=== PATIENT | male | born 1995 | race African-American/Black ===

== ENCOUNTER 2023-10-28 22:55 | Emergency (ER) | payer SELFPAY ==
[2023-10-28] MEDS ORDERED: ONDANSETRON 4 MG/2 ML VIAL ONE (23:07)
[2023-10-28] MEDS ORDERED: MORPHINE 4 MG/ML SYR ONE (23:07)
[2023-10-28] MEDS ORDERED: NA CHLORIDE 0.9% 1,000 ML ONE (23:08)
[2023-10-28 23:20] LABS: Absolute Basophils 0.1 K/uL (0-0.5); Absolute Eosinophils 0.3 K/uL (0-0.5); Absolute Lymphocytes (CBC) 4.4 K/uL (0.7-4.9); Absolute Monocytes 0.9 K/uL (0.1-1.3); Absolute Neutrophil 10.4 K/uL (1.8-8.0); Basophils % 0.4 % (0-1.3); Eosinophils % 1.6 % (0-4.4); Hematocrit 39.4 % (39.6-49.0); Hemoglobin 13.2 g/dL (13.6-17.9); Lymphocytes % 27.6 % (15.3-44.8); MCH 31.6 pg (27.0-35.0); MCHC 33.4 g/dL (32.0-36.0); MCV 94.6 fL (80-100); MPV 7.9 fL (7.6-11.3); Monocytes % 5.7 % (3.3-12.3); Neutrophils % 64.7 % (41.7-73.7); Nucleated Red Blood Cells % 0.1 % (0-0); Platelets 300 thou/uL (152-406); RBC Red Blood Cell Count 4.16 M/uL (4.33-5.43); Red Cell Distribution Width 13.8 % (12.1-15.2)
[2023-10-28 23:26] LABS: Albumin 3.8 g/dL (3.4-5.0); Albumin/Globulin Ratio 1.1 (1.1-1.8); Anion Gap 12.1 mEq/L (5.0-15.0); Bilirubin Total 0.7 mg/dL (0.2-1.0); Globulin 3.5 g/dL (2.3-3.5); Potassium 3.1 mEq/L (3.5-5.1); Protein, Total 7.3 g/dL (6.4-8.2)
[2023-10-29] MEDS ORDERED: PIPERACIL/TAZO 3.375 GM VIAL IV ONE (00:24)
[2023-10-29] MEDS ORDERED: NA CHLORIDE 0.9% 100 ML ONE (00:24)
[2023-10-29 00:50] LABS: Calcium Oxalate Crystals- Ur Few /HPF (None Seen); Sqamous Epithelial <5 /HPF (None Seen); Urine Bacteria <20 /HPF (<20); Urine Bilirubin NEGATIVE (Negative); Urine Blood Negative (Negative); Urine Clarity Clear (Clear); Urine Color Light-Yellow (Yellow); Urine Culture Reflex Order NOT NEEDED; Urine Glucose NEGATIVE (Negative); Urine Ketones NEGATIVE (Negative); Urine Microscopic Reflex YN ORDER UMIC; Urine Mucus Slight /HPF (None Seen); Urine Nitrite NEGATIVE (Negative); Urine Protein TRACE (Negative); Urine RBC None Seen /HPF (None Seen); Urine Urobilinogen Normal (Normal); Urine pH 6.5 (5.0-7.0)
[2023-10-29 00:51] LABS: Specific Gravity > 1.030 (1.005-1.030)
--- NOTE | 2023-10-29 02:30 | EDPHYS ---
Physician Documentation [facility] Name: Luis Smalls Age: 27 yrs Sex: Male : 1995 Arrival Date: 10/28/2023 Time: 22:55 Bed 19 Private MD: ED Physician Jacob Lopez HPI: 10/27 23:23 This 27 yrs old Black Male presents to ER via Unassigned with complaints of Abdominal rt Pain. 23:23 Patient presents to the ED with a generalized abdominal pain, intermittently for about rt 1 week. It worsened tonight. Reports nausea, vomiting. Denies other acute complaints at this time, symptoms are moderate in severity, no other aggravating or alleviating factors.. Historical: - Allergies: 23:52 No Known Allergies; pc2 - PMHx: 23:52 None; pc2 - PSHx: 23:52 None; pc2 - Immunization history:: Adult Immunizations unknown. - Infectious Disease History:: Denies. - Family history:: not pertinent. - Social history:: Smoking status: Patient reports the use of cigarette tobacco products, denies chronic smoking, but will smoke occasionally. ROS: 23:23 Constitutional: Negative for fever, chills, and weight loss, Cardiovascular: Negative rt for chest pain, palpitations, and edema, Respiratory: Negative for shortness of breath, cough, wheezing, and pleuritic chest pain, MS/Extremity: Negative for injury and deformity, Skin: Negative for injury, rash, and discoloration, Neuro: Negative for headache, weakness, numbness, tingling, and seizure, 23:23 Abdomen/GI: Positive for abdominal pain, nausea and vomiting, Exam: 23:23 Constitutional: This is a well developed, well nourished patient who is awake, alert, rt and in no acute distress. Head/Face: Normocephalic, atraumatic. Chest/axilla: Normal chest wall appearance and motion. Nontender with no deformity. No lesions are appreciated. Cardiovascular: Regular rate and rhythm with a normal S1 and S2. No gallops, murmurs, or rubs. Normal PMI, no JVD. No pulse deficits. Respiratory: Lungs have equal breath sounds bilaterally, clear to auscultation and percussion. No rales, rhonchi or wheezes noted. No increased work of breathing, no retractions or nasal flaring. Skin: Warm, dry with normal turgor. Normal color with no rashes, no lesions, and no evidence of cellulitis. MS/ Extremity: Pulses equal, no cyanosis. Neurovascular intact. Full, normal range of motion. Neuro: Awake and alert, GCS 15, oriented to person, place, time, and situation. Cranial nerves II-XII grossly intact. Motor strength 5/5 in all extremities. Sensory grossly intact. Cerebellar exam normal. Normal gait. 23:23 Abdomen/GI: Tenderness diffusely with no rebound, mild guarding, distention, Vital Signs: 22:50 BP 135 / 100; Pulse 61; Resp 18; Temp 98.2; Pulse Ox 99% on R/A; pc2 23:48 BP 128 / 92; Pulse 73; Resp 18; Pulse Ox 99% on R/A; Weight 63.05 kg; Height 5 ft. 8 pc2 in. ; 10/28 03:00 BP 146 / 79; Pulse 74; Resp 16; Pulse Ox 100% on R/A; pc2 10/27 23:48 Body Mass Index 21.13 (63.05 kg, 172.72 cm) pc2 MDM: 10/27 22:57 Patient medically screened. rt 10/28 04:44 Differential Diagnosis Cholecystitis, UTI, colitis, bowel obstruction. Data reviewed: rt vital signs, nurses notes, lab test result(s), radiologic studies. Consideration of Admission/Observation Escalation of care including admission/observation considered. Patient with leukocytosis, has no other SIRS criteria. I discussed findings with the patient, patient states that he wishes to go home. Will treat patient with course of antibiotics. I did offer patient mission to the hospital, he states that he wishes to follow-up as an outpatient. Strict return precautions were discussed.. I considered the following discharge prescriptions or medication management in the emergency department Medications were administered in the Emergency Department. See MAR. Independent interpretation of the following test(s) in the Emergency Department CT Scan: My interpretation is No bowel obstruction seen on my interpretation of CT scan images. Counseling: I had a detailed discussion with the patient and/or guardian regarding the historical points, exam findings, and any diagnostic results supporting the discharge/admit diagnosis, lab results, radiology results, the need for outpatient follow up, to return to the emergency department if symptoms worsen or persist or if there are any questions or concerns that arise at home. Response to treatment: the patient's symptoms have markedly improved after treatment. 10/27 22:57 Order name: CBC with Diff; Complete Time: 00:05 rt 10/27 22:57 Order name: CMP; Complete Time: 00:05 rt 10/27 22:57 Order name: Lipase; Complete Time: 00:05 rt 10/27 22:57 Order name: Urinalysis w/ reflexes; Complete Time: 00:55 rt 10/27 22:57 Order name: CT Abd/Pelvis - IV Contrast Only rt 10/28 00:14 Order name: US Abdomen Limited rt 10/27 22:57 Order name: IV Saline Lock; Complete Time: 23:03 rt 10/27 21:57 Order name: Labs collected and sent; Complete Time: 23:03 rt Administered Medications: 10/27 23:30 Drug: NS 0.9% IV 1000 ml IV at 1 bolus Per protocol; 1000 mL bolus Route: IV; Rate: 1 pc2 bolus; Site: right antecubital; 10/28 00:00 Follow up: Response: No adverse reaction; IV Status: Completed infusion; IV Intake: pc2 1000ml 10/27 23:30 Drug: Ondansetron IVP 4 mg IVP once; over 2 minutes Route: IVP; Site: right antecubital;pc2 10/28 00:00 Follow up: Response: No adverse reaction pc2 10/27 23:30 Drug: morphine IVP or IV 4 mg IVP once over 4 mins Route: IVP; Infused Over: 4 mins; pc2 Site: right antecubital; 10/28 00:00 Follow up: Response: No adverse reaction; RASS: Alert and Calm (0) pc2 00:35 Drug: Piperacillin-Tazobactam IVPB 3.375 grams IVPB once over 60 mins; (mix in NS 100 pc2 mL) Route: IVPB; Infused Over: 60 mins; Site: right antecubital; 01:00 Follow up: Response: No adverse reaction; IV Status: Completed infusion; IV Intake: pc2 100ml 02:52 Drug: morphine IVP or IV 4 mg IVP once over 4 mins Route: IVP; Infused Over: 4 mins; pc2 Site: right antecubital; 03:20 Follow up: Response: No adverse reaction; Marked relief of symptoms; RASS: Alert and pc2 Calm (0) Disposition Summary: 10/29/23 03:15 Discharge Ordered Notes: Location: Home(10/29/23 03:15) rt Problem: new rt Symptoms: have improved rt Condition: Stable(10/29/23 03:15) rt Diagnosis - Left sided colitis rt Followup: rt - With: Manuel Hernández MD - When: 5 - 6 days - Reason: Forms: - Medication Reconciliation Form rt - Antibiotic Education rt - Prescription Opioid Use rt - Patient Portal Instructions rt - Leadership Thank You Letter rt Signatures: Dispatcher [employer] Jacob Joseph MD MD rt Kim Townsend, RN RN pc2 Corrections: (The following items were deleted from the chart) 02:58 02:30 Home rt rt 02:58 02:30 Stable rt rt 02:58 02:30 Left sided colitis without complications rt rt
--- NOTE | 2023-10-29 02:30 | ER ---
Nurse's Notes [facility] Name: Luis Smalls Age: 27 yrs Sex: Male : 1995 Arrival Date: 10/28/2023 Time: 22:55 Bed 19 Private MD: Diagnosis: Left sided colitis Presentation: 10/27 22:50 Chief complaint: Patient states: diffuse abdominal pain and vomiting x1 week, worsened pc2 on today. Unable to take a deep breath. 22:50 Coronavirus screen: At this time, the client does not indicate any symptoms associated pc2 with coronavirus-19. Ebola Screen: No symptoms or risks identified at this time. Initial Sepsis Screen: Does the patient meet any 2 criteria? No. Patient's initial sepsis screen is negative. Does the patient have a suspected source of infection? No. Patient's initial sepsis screen is negative. Risk Assessment: Do you want to hurt yourself or someone else? Patient reports no desire to harm self or others. Onset of symptoms was October 21, 2023. Care prior to arrival: Medication(s) given: Normal saline infusion, 1000 mL, toradol 15mg IVP, NS bolus initiated IV initiated. 20 GA, in the right antecubital area. 22:50 Method Of Arrival: EMS: [facility] pc2 22:50 Acuity: JABARI 3 pc2 Triage Assessment: 22:55 General: Appears in no apparent distress. uncomfortable, slender, unkempt, Behavior is pc2 calm, cooperative, appropriate for age. Pain: Complains of pain in abdomen Pain does not radiate. Pain currently is 1 out of 10 on a pain scale. at worst was 10 out of 10 on a pain scale. Quality of pain is described as aching, Pain began 1 week ago Also complains of nausea. EENT: No signs and/or symptoms were reported regarding the EENT system. Neuro: Level of Consciousness is awake, alert, obeys commands, Oriented to person, place, time, situation, Appropriate for age. Cardiovascular: Denies chest pain, Patient's skin is warm and dry. Respiratory: Airway is patent Respiratory effort is even, unlabored, Respiratory pattern is regular, symmetrical. GI: Abdomen is flat, non-distended, Bowel sounds present X 4 quads. Abd is soft and non tender X 4 quads. Reports nausea, vomiting, 5 episodes on today, about 10 episodes in the last week. : No signs and/or symptoms were reported regarding the genitourinary system. Derm: No signs and/or symptoms reported regarding the dermatologic system. Musculoskeletal: No signs and/or symptoms reported regarding the musculoskeletal system. Historical: - Allergies: 23:52 No Known Allergies; pc2 - PMHx: 23:52 None; pc2 - PSHx: 23:52 None; pc2 - Immunization history:: Adult Immunizations unknown. - Infectious Disease History:: Denies. - Family history:: not pertinent. - Social history:: Smoking status: Patient reports the use of cigarette tobacco products, denies chronic smoking, but will smoke occasionally. Screenin:[facility] ED Fall Risk Assessment (Adult) History of falling in the last 3 months, pc2 including since admission No falls in past 3 months (0 pts) Confusion or Disorientation No (0 pts) Intoxicated or Sedated No (0 pts) Impaired Gait No (0 pts) Mobility Assist Device Used No (0 pt) Altered Elimination No (0 pt) Score/Fall Risk Level 0 - 2 = Low Risk Oriented to surroundings, Maintained a safe environment. Abuse screen: Denies threats or abuse. Denies injuries from another. Nutritional screening: No deficits noted. Tuberculosis screening: No symptoms or risk factors identified. Assessment: 23:48 Reassessment: see triage. pc2 Vital Signs: 22:50 BP 135 / 100; Pulse 61; Resp 18; Temp 98.2; Pulse Ox 99% on R/A; pc2 23:48 BP 128 / 92; Pulse 73; Resp 18; Pulse Ox 99% on R/A; Weight 63.05 kg; Height 5 ft. 8 pc2 in. ; 08 03:00 BP 146 / 79; Pulse 74; Resp 16; Pulse Ox 100% on R/A; pc2 10/27 23:48 Body Mass Index 21.13 (63.05 kg, 172.72 cm) pc2 ED Course: 10/27 22:53 Arm band placed on right wrist. pc2 22:55 Patient has correct armband on for positive identification. Bed in low position. Call pc2 light in reach. Side rails up X 1. Provided Education on: POC and time frame. 22:56 Patient arrived in ED. gm2 22:56 Jacob Lopez MD is Attending Physician. rt 22:59 Kim Townsend, RN is Primary Nurse. pc2 23:03 CBC with Diff Sent. pc2 23:03 CMP Sent. pc2 23:03 Lipase Sent. pc2 23:23 CT Abd/Pelvis - IV Contrast Only In Process Unspecified. EDMS 23:47 Triage completed. pc2 23:52 No provider procedures requiring assistance completed. pc2 10/28 00:30 US at bedside. pc2 00:36 Urinalysis w/ reflexes Sent. pc2 00:36 US Abdomen Limited Sent. pc2 00:37 US Abdomen Limited In Process Unspecified. EDMS 02:29 Manuel Hernández MD is Referral Physician. rt 03:14 Manuel Hernández MD is Referral Physician. rt 03:20 IV discontinued, intact, bleeding controlled, No redness/swelling at site. Pressure pc2 dressing applied. Administered Medications: 10/27 23:30 Drug: NS 0.9% IV 1000 ml IV at 1 bolus Per protocol; 1000 mL bolus Route: IV; Rate: 1 pc2 bolus; Site: right antecubital; 10/28 00:00 Follow up: Response: No adverse reaction; IV Status: Completed infusion; IV Intake: pc2 1000ml 10/27 23:30 Drug: Ondansetron IVP 4 mg IVP once; over 2 minutes Route: IVP; Site: right antecubital;pc2 10/28 00:00 Follow up: Response: No adverse reaction pc2 10/27 23:30 Drug: morphine IVP or IV 4 mg IVP once over 4 mins Route: IVP; Infused Over: 4 mins; pc2 Site: right antecubital; 10/28 00:00 Follow up: Response: No adverse reaction; RASS: Alert and Calm (0) pc2 00:35 Drug: Piperacillin-Tazobactam IVPB 3.375 grams IVPB once over 60 mins; (mix in NS 100 pc2 mL) Route: IVPB; Infused Over: 60 mins; Site: right antecubital; 01:00 Follow up: Response: No adverse reaction; IV Status: Completed infusion; IV Intake: pc2 100ml 02:52 Drug: morphine IVP or IV 4 mg IVP once over 4 mins Route: IVP; Infused Over: 4 mins; pc2 Site: right antecubital; 03:20 Follow up: Response: No adverse reaction; Marked relief of symptoms; RASS: Alert and pc2 Calm (0) Medication: 10/27 23:52 VIS not applicable for this client. pc2 Intake: 10/28 00:00 IV: 1000ml; Total: 1000ml. pc2 01:00 IV: 100ml; Total: 1100ml. pc2 Outcome: 02:30 Discharge ordered by . rt 03:15 Discharge ordered by MD. rt 03:19 Discharged to home ambulatory, with family, pc2 03:19 Condition: stable 03:19 Discharge instructions given to patient, Instructed on discharge instructions, follow up and referral plans. medication usage, Demonstrated understanding of instructions, follow-up care, medications, Prescriptions given X 3, 03:22 Patient left the ED. pc2 Signatures: Dispatcher [employer] EDMS Jacob Lopez MD MD rt [facility] Kim Townsend, RN RN pc2 Corrections: (The following items were deleted from the chart) 10/27 23:52 23:48 BP 128 / 92; Pulse 73bpm; Resp 18bpm; Pulse Ox 99% RA; pc2 pc2
[2023-10-29] MEDS ORDERED: MORPHINE 4 MG/ML SYR ONE (02:48)
[2023-10-29 03:28] VITALS: BP 146/79; O2SAT 100
--- NOTE | 2023-10-29 20:45 | RAD REPORT ---
EXAM DESCRIPTION: US ABDOMEN LIMITED CLINICAL HISTORY: 27-year-old male with abdominal pain. COMPARISON: CT of the abdomen 10/28/2023 FINDINGS: Grayscale and color-flow imaging was obtained. No hepatic lesion. Normal hepatic echotexture. No visualized pancreatic lesion. Main portal vein demonstrates hepatopedal flow. No shadowing cholelithiasis, pericholecystic fluid, or biliary duct dilatation. 3.0 x 2.7 mm anterior gallbladder nonshadowing echogenic focus, most consistent with a polyp. Mild gallbladder sludge. Gallbladder wall measures 4.3 mm Proximal common bile duct measures 4.1 mm IMPRESSION: 1. Mild gallbladder sludge, with mild nonspecific gallbladder mural thickening. No bilia ry duct dilatation. 2. Gallbladder 3 mm polyp. No follow-up imaging is recommended. Electronically signed by: Avinash Lowry MD 10/29/2023 01:06 AM CDT Due to temporary technical issues with the PACS/Fluency reporting system, reports are being signed by the in house radiologists without review as a courtesy to insure prompt reporting. The interpreting radiologist is fully responsible for the content of the report.
--- NOTE | 2023-10-29 20:46 | RAD REPORT ---
EXAM DESCRIPTION: Abdomen Pelvis W Contrast CLINICAL HISTORY: ABD PAIN COMPARISON: None Available. TECHNIQUE: CT of the abdomen and pelvis performed following the administration of IV contrast. No or al contrast. This exam was performed according to our departmental dose-optimization program, which i ncludes automated exposure control, adjustment of the mA and/or kV according to patient size and/or u se of iterative reconstruction technique. FINDINGS: Lung Bases: Mild bilateral dependent atelectasis. Abdomen: Liver: The liver has normal contour and density. No suspicious mass. Gallbladder: No calcified gallstones. Mild nonspecific gallbladder wall thickening. Spleen, Pancreas, and Adrenal Glands: The spleen, pancreas, and adrenal glands are unremarkable. Kidneys: Minimal linear hypoenhancement at the lower pole right kidney. Bilateral simple appearing renal cysts, some of which are too small to adequately characterize. Largest cyst is noted at the int erpolar left kidney, measuring 3.6 x 3.9 cm.. No urinary tract calculi. No hydronephrosis. Vasculature: The aorta and IVC have normal caliber and position. The portal vein is patent. The pro ximal visceral and renal arteries are patent. Stomach: The stomach and duodenum have normal course. Other: No free intraperitoneal air. No significant lymphadenopathy. Pelvis: Bladder: Urinary bladder is unremarkable. Bowel: No bowel obstruction. Circumferential wall thickening of the colon more pronounced proximall y in the ascending and transverse colon. There is some adjacent fat stranding. Appendix: Normal appendix. Pelvis: No suspicious mass. Small amount of free pelvic fluid. Bones: No destructive bone lesions identified. IMPRESSION: 1. Findings compatible with colitis with differential considerations including infecti ous and inflammatory etiologies. 2. Mild nonspecific gallbladder wall thickening. If indicated, this can be further evaluated with u ltrasound. 3. Minimal linear hypoenhancement at the lower pole right kidney. This could be due to pyelonephrit is. Correlate with urinalysis. 4. Small amount of free pelvic fluid. Electronically signed by: Esah Giraldo MD 10/28/2023 11:49 PM CDT Due to temporary technical issues with the PACS/Fluency reporting system, reports are being signed by the in house radiologists without review as a courtesy to insure prompt reporting. The interpreting radiologist is fully responsible for the content of the report.
== END 2023-10-29 03:22 | disposition home or self-care (01) ==
LOC: ER 22:55
DX: K51.50 Left sided colitis without complications (principal); F17.210 Nicotine dependence, cigarettes, uncomplicated
CPT/HCPCS: 36415; 74177; 76705; 80053; 81001; 83690; 85025; J2405; J2543; J7030; Q9967